=== PATIENT | female | born 1990 | race Two or more races ===

== ENCOUNTER 2021-03-22 16:45 | Emergency (ER) | payer OTHER ==
[~2021-03-22] VITALS: Ht 160 cm; Wt 68.0 kg
[2021-03-22 18:22] LABS: Basophils # (auto) 0 10 ^3/uL (0-0.2); Eosinophils # (auto) 0.1 10 ^3/uL (0-0.8); Eosinophils % (auto) 2.3 % (0.0-7.0); Hematocrit 39.2 % (36.0-46.0); Hemoglobin 13.2 g/dL (12.2-16.2); Lymphocytes # (auto) 1.3 10 ^3/uL (0.4-5.4); Lymphocytes % (auto) 27.7 % (10.0-50.0); Mean Corpuscular Hemoglobin 32.5 pg (28.0-32.0); Mean Corpuscular Hgb Conc. 33.6 g/dL (32.0-36.0); Mean Corpuscular Volume 96.5 fL (80.0-100.0); Monocytes # (auto) 0.4 10 ^3/uL (0-1.3); Neutrophils # (auto) 2.8 10 ^3/uL (1.6-8.6); Nucleated Red Blood Cells % 0.2 %; Red Blood Cells 4.06 10^6/uL (4.0-5.20); Red Cell Distribution Width 13.1 % (11.8-14.3); White Blood Cell 4.6 10^3/uL (4.4-10.8)
[2021-03-22] MEDS ORDERED: HYDROcodone-ACET 10/325MG TAB PO ONE (19:45)
[2021-03-22 20:15] VITALS: BP 131/73
== END 2021-03-22 21:00 | disposition home or self-care (01) ==
LOC: EDBD 16:57 → ER 16:57
DX: N83.201 Unspecified ovarian cyst, right side (principal); Z90.89 Acquired absence of other organs
CPT/HCPCS: 36415; 76830; 76856; 84702; 85025